=== PATIENT | female | born 1960 | race Hispanic/Latino ===

== ENCOUNTER 2017-01-25 08:16 | Outpatient (CLI) | payer OTHER ==
--- NOTE | 2017-01-25 09:00 | Mammography Report ---
Bilateral mammogram: Compared to 12/29/15. CAD study utilized. Findings: Scattered lingular parenchyma bilaterally. No mass or microcalcification. Benign density in benign calcifications. No significant interval change. Impression: Benign findings. Annual followup recommended. BI-RADS CATEGORY: 2 = Benign ACR BI-RADS MAMMOGRAPHIC CODES: 0 = Needs additional imaging evaluation; 1 = Negative; 2 = Benign; 3 = Probably benign; 4 = Suspicious; 5 = Malignant; 6 = Known biopsy-proven malignancy COMMENT: 1. Dense breast tissue, i.e., adenosis, fibrocystic changes, etc., may obscure an underlying neoplasm. 2. Approximately 10% of cancers are not detected with mammography. 3. A negative mammography report should not delay biopsy if a clinically suspicious mass is present. COMMENT: Patient follow-up letters are generated in [employer].
== END 2017-01-25 08:17 | disposition home or self-care (01) ==
LOC: MAMMO 08:16
PROVIDERS: ATTEND Internal Medicine
DX: Z12.31 Encounter for screening mammogram for malignant neoplasm of breast (principal)
CPT/HCPCS: 77067; G0202

== ENCOUNTER 2018-02-05 06:21 | Outpatient (CLI) | payer OTHER ==
--- NOTE | 2018-02-05 16:18 | Mammography Report ---
BILATERAL DIGITAL SCREENING MAMMOGRAM with CAD: 02/05/18 06:21:00 CLINICAL: Routine screening. COMPARISON:01/25/17 FINDINGS: The breasts are heterogeneously dense, which may obscure small masses. A right asymmetry and left asymmetries with architectural distortion require additional imaging.No suspicious calcifications. IMPRESSION: Bilateral asymmetries requiring further workup. BI-RADS CATEGORY: 0 -- Additional Imaging Evaluation Required RECOMMENDATION: Recall for bilateral true lateral, bilateral rolled CC and bilateral spot magnification views and bilateral breast ultrasound if needed. ACR BI-RADS MAMMOGRAPHIC CODES: 0 = Needs additional imaging evaluation; 1 = Negative; 2 = Benign; 3 = Probably benign; 4 = Suspicious; 5 = Malignant; 6 = Known biopsy-proven malignancy COMMENT: 1. Dense breast tissue, i.e., adenosis, fibrocystic changes, etc., may obscure an underlying neoplasm. 2. Approximately 10% of cancers are not detected with mammography. 3. A negative mammography report should not delay biopsy if a clinically suspicious mass is present. COMMENT: Patient follow-up letters are generated via our [employer] application.
== END 2018-02-05 06:22 | disposition home or self-care (01) ==
LOC: MAMMO 06:21
PROVIDERS: ATTEND Internal Medicine
DX: Z12.31 Encounter for screening mammogram for malignant neoplasm of breast (principal)
CPT/HCPCS: 77067

== ENCOUNTER 2018-02-26 14:11 | Outpatient (CLI) | payer OTHER ==
--- NOTE | 2018-02-26 16:04 | Mammography Report ---
BILATERAL DIGITAL DIAGNOSTIC MAMMOGRAM : 02/26/18 14:11:00 CLINICAL: Recalled for bilateral asymmetries. COMPARISON:02/05/18 screening FINDINGS: Bilateral additional mammographic views were performed and are negative. IMPRESSION: No mammographic evidence of malignancy. BI-RADS CATEGORY: 1 -- Negative RECOMMENDATION: Routine mammographic screening in one year. ACR BI-RADS MAMMOGRAPHIC CODES: 0 = Needs additional imaging evaluation; 1 = Negative; 2 = Benign; 3 = Probably benign; 4 = Suspicious; 5 = Malignant; 6 = Known biopsy-proven malignancy COMMENT: 1. Dense breast tissue, i.e., adenosis, fibrocystic changes, etc., may obscure an underlying neoplasm. 2. Approximately 10% of cancers are not detected with mammography. 3. A negative mammography report should not delay biopsy if a clinically suspicious mass is present. COMMENT: Patient follow-up letters are generated via our [employer] application.
== END 2018-02-26 14:12 | disposition home or self-care (01) ==
LOC: MAMMO 14:11
PROVIDERS: ATTEND Internal Medicine
DX: N64.89 Other specified disorders of breast (principal)
CPT/HCPCS: 77066

== ENCOUNTER 2019-06-10 09:07 | Outpatient (CLI) | payer OTHER ==
--- NOTE | 2019-06-10 11:47 | Mammography Report ---
DIGITAL SCREENING MAMMOGRAM WITH CAD, 06/10/2019 INDICATION: Routine screening mammography. TECHNIQUE: Digital bilateral 2D mammography was obtained in the craniocaudal and mediolateral obliq ue projections. This examination was interpreted with the benefit of Computer-Aided Detection analysi s. COMPARISON: 02/05/2018 FINDINGS: Breast Density: The breasts are heterogeneously dense, which may obscure small masses. There is no evidence of dominant mass, suspicious calcifications or architectural distortion in eithe r breast. IMPRESSION: No mammographic evidence of malignancy. Follow up recommendation: Routine yearly BI-RADS Category 1: Negative. A "normal" or negative report should not discourage follow up or biopsy of a clinically significant f inding. A written summary of these findings will be mailed to the patient. The patient will be entered into a mammography reporting system which will generate a reminder letter for the patient's next appointmen t at the appropriate interval. The [employer] recommends yearly mammograms starting at age 40 and continuing as l dayana as a woman is in good health. Breast MRI is recommended for women with an approximate 20-25% or greater lifetime risk of breast cancer, including women with a strong family history of breast or ova juvencio cancer or who have been treated for Hodgkin's disease. Signer Name: Gaston Evans MD Signed: 06/10/2019 11:43 AM Workstation Name: [id number]
== END 2019-06-10 09:08 | disposition home or self-care (01) ==
LOC: MAMMO 09:07
PROVIDERS: ATTEND Internal Medicine
DX: Z12.31 Encounter for screening mammogram for malignant neoplasm of breast (principal)
CPT/HCPCS: 77067

== ENCOUNTER 2020-06-13 07:37 | Outpatient (CLI) | payer OTHER ==
--- NOTE | 2020-06-13 08:48 | Mammography Report ---
DIGITAL SCREENING MAMMOGRAM WITH CAD, 06/13/2020 INDICATION: Routine screening mammography. ROUTINE TECHNIQUE: Digital bilateral 2D mammography was obtained in the craniocaudal and mediolateral obliq ue projections. This examination was interpreted with the benefit of Computer-Aided Detection analysi s. COMPARISON: 06/10/2019 FINDINGS: Breast Density: The breasts are heterogeneously dense, which may obscure small masses. There is no evidence of dominant mass, suspicious calcifications or architectural distortion in eithe r breast. IMPRESSION: No evidence of malignancy Follow up recommendation: Routine yearly BI-RADS Category 1: Negative. A "normal" or negative report should not discourage follow up or biopsy of a clinically significant f inding. A written summary of these findings will be mailed to the patient. The patient will be entered into a mammography reporting system which will generate a reminder letter for the patient's next appointmen t at the appropriate interval. The [employer] recommends yearly mammograms starting at age 40 and continuing as l dayana as a woman is in good health. Breast MRI is recommended for women with an approximate 20-25% or greater lifetime risk of breast cancer, including women with a strong family history of breast or ova juvencio cancer or who have been treated for Hodgkin's disease. Signer Name: Jaswinder Andujar MD Signed: 06/13/2020 8:43 AM Workstation Name: [email or web address]
== END 2020-06-13 07:38 | disposition home or self-care (01) ==
LOC: MAMMO 07:37
PROVIDERS: ATTEND Internal Medicine
DX: Z12.31 Encounter for screening mammogram for malignant neoplasm of breast (principal)
CPT/HCPCS: 77067

== ENCOUNTER 2021-06-20 13:59 | Outpatient (CLI) | payer OTHER ==
--- NOTE | 2021-06-20 18:12 | Mammography Report ---
DIGITAL SCREENING MAMMOGRAM WITH CAD, 06/20/2021 CLINICAL INFORMATION / INDICATION: Routine screening mammography. SCREENING MAMMOGRAM TECHNIQUE: Digital bilateral 2D mammography was obtained in the craniocaudal and mediolateral obliqu e projections. This examination was interpreted with the benefit of Computer-Aided Detection analysis . COMPARISON: 10/11/2018, 02/05/2018 FINDINGS: Breast Density: The breasts are heterogeneously dense, which may obscure small masses. No dominant mass, suspicious calcifications, or architectural distortion in either breast. There is a stable nodule on the left. IMPRESSION: No mammographic evidence of malignancy. Follow up recommendation: Routine yearly BI-RADS Category 2: Benign. A "normal" or negative report should not discourage follow up or biopsy of a clinically significant f inding. A written summary of these findings will be mailed to the patient. The patient will be entered into a mammography reporting system which will generate a reminder letter for the patient's next appointmen t at the appropriate interval. The [employer] recommends yearly mammograms starting at age 40 and continuing as l dayana as a woman is in good health. Breast MRI is recommended for women with an approximate 20-25% or greater lifetime risk of breast cancer, including women with a strong family history of breast or ova juvencio cancer or who have been treated for Hodgkin's disease. Signer Name: Fernando Figueroa MD Signed: 06/20/2021 6:08 PM Workstation Name: [email or web address] [id number]
== END 2021-06-20 14:00 | disposition home or self-care (01) ==
LOC: MAMMO 13:59
PROVIDERS: ATTEND Internal Medicine
DX: Z12.31 Encounter for screening mammogram for malignant neoplasm of breast (principal)
CPT/HCPCS: 77067